=== PATIENT | female | born 1955 | race Caucasian/White ===

== ENCOUNTER → 2020-07-01 15:14 | Outpatient (CLI) | payer MEDICARE, SELFPAY ==
--- NOTE | ~2020-07-01 | MM_ITS ---
EXAMINATION: MM screening juli BI w rai HISTORY: Screening mammogram TECHNIQUE: Craniocaudal and mediolateral oblique 3-D tomosynthesis images were obtained and synthetic 2-D images were generated. CAD analysis was submitted and interpreted. COMPARISON: 10/23/2018, 09/20/2016, 05/25/2015 bilateral digital screening mammogram examinations BREAST PARENCHYMAL COMPOSITION: There are scattered areas of fibroglandular density. FINDINGS: There is no evidence of suspicious mass, calcification, or architectural distortion to sugg est malignancy in either breast. There has been no suspicious interval change. IMPRESSION: 1. No mammographic evidence of malignancy. 2. Recommend routine screening mammography in one year. BI-RADS Category 1: Negative Reviewed, dictated and finalized at location A.
== END ==
PROVIDERS: PCP Internal Medicine; Visit Provider Internal Medicine
DX: Z12.31 Encounter for screening mammogram for malignant neoplasm of breast (principal)
CPT/HCPCS: 77063; 77067

== ENCOUNTER → 2021-01-06 12:28 | Outpatient (CLI) | payer MEDICARE, SELFPAY ==
--- NOTE | ~2021-01-06 | DEXA_ITS ---
Bone Density Report Name: Sandra Duke Age: 65 Sex: Female Ethnicity: White Date of : 1955 Indication: postmenopausal; screening for osteoporosis; height loss; hysterectomy; Referring Provider: RODRIGO, ROSALES [place] Study: Bone densitometry was performed. Exam Date: January 06, 2021 Accession number: [id number] Bone Density: Region BMD T-score Z-score Classification AP Spine (L1-L4) 1.127 0.7 2.6 Normal Femoral Neck (Left) 0.841 -0.1 1.6 Normal Total Hip (Left) 1.026 0.7 2.0 Normal Femoral Neck (Right) 0.975 1.1 2.8 Normal Total Hip (Right) 1.075 1.1 2.4 Normal Total Hip Mean 1.051 0.9 2.2 Normal World Health Organization criteria for BMD impression classify patients as: Normal (T-score at or above -1.0), Osteopenia (T-score between -1.0 and -2.5), or Osteoporosis (T-score at or below -2.5). 10-year Fracture Risk: FRAX not reported because: All T-scores for Spine Total, Hip Total, Femoral Neck at or above -1.0 Previous Exams: Region Exam Age BMD T-score BMD Change BMD Change Date g/cm2 vs Baseline vs Previous AP Spine(L1-L4) 01/06/2021 65 1.127 0.7 -0.084 -0.021 10/23/2018 63 1.148 0.9 -0.063 0.050 04/26/2014 58 1.098 0.5 -0.113 -0.029* 06/01/2011 55 1.127 0.7 -0.084 0.021 05/04/2009 53 1.106 0.5 -0.105 0.032* 04/09/2007 51 1.075 0.3 -0.136 -0.136 07/24/2003 47 1.211 1.5 Total Hip(Left) 01/06/2021 65 1.026 0.7 -0.142 -0.029 10/23/2018 63 1.055 0.9 -0.112 0.032 04/26/2014 58 1.023 0.7 -0.144 -0.016 06/01/2011 55 1.039 0.8 -0.128 -0.103 05/04/2009 53 1.143 1.6 -0.025 0.043* 04/09/2007 51 1.100 1.3 -0.068 -0.068 07/24/2003 47 1.167 1.8 Total Hip(Right) 01/06/2021 65 1.075 1.1 -0.038 -0.047 10/23/2018 63 1.122 1.5 0.009 0.033 04/26/2014 58 1.089 1.2 -0.024 -0.002 06/01/2011 55 1.091 1.2 -0.022 -0.030 05/04/2009 53 1.121 1.5 0.008 -0.022 04/09/2007 51 1.142 1.6 0.029 0.029 07/24/2003 47 1.113 1.4 *Denotes significance at 95% confidence level, LSC for AP Spine = 0.022 g/cm2, LSC for Total Hip = 0.027 g/cm2 Clinical Information Provided by Patient:
== END ==
PROVIDERS: PCP Internal Medicine; Visit Provider Internal Medicine
DX: Z13.820 Encounter for screening for osteoporosis (principal); Z78.0 Asymptomatic menopausal state
CPT/HCPCS: 77080

== ENCOUNTER 2021-06-03 13:46 | Outpatient (CLI) | payer MEDICARE, SELFPAY ==
--- NOTE | ~2021-06-03 | XR_ITS ---
XR knee LT 3V DATE: 06/03/2021 15:15 INDICATION: Left knee pain TECHNIQUE: [place], AP, lateral views COMPARISON: None FINDINGS: Diffuse osteopenia. There is valgus deformity at the left knee. There is tricompartment osteoarthritic arthritis, most severe at lateral compartment where the joint space is virtually obliterated. No fracture or dislocation or joint effusion. No periosteal reaction or bone destruction. There is extensive calcification of the femoral, popliteal and trifurcation arteries. IMPRESSION: Osteopenia Tricompartment osteoarthritis, particularly severe at lateral compartment Valgus deformity of left knee Reviewed, dictated and finalized at location A.
== END 2021-06-03 13:47 | disposition home or self-care (01) ==
LOC: ANHIMG 13:55
PROVIDERS: PCP Internal Medicine; Visit Provider Internal Medicine
DX: M85.862 Other specified disorders of bone density and structure, left lower leg (principal); M17.12 Unilateral primary osteoarthritis, left knee
CPT/HCPCS: 73562

== ENCOUNTER 2023-03-07 11:58 | Outpatient (CLI) | payer MEDICARE, SELFPAY ==
[2023-03-07 14:07] LABS: Basophils Absolute Auto 0.1 K/mm3 (0.0-0.1); Eosinophils Absolute Auto 0.2 K/mm3 (0-0.3); Eosinophils Percent Auto 3.3 % (0-4.4); Hematocrit 38.6 % (37.0-47.0); Hemoglobin 12.3 g/dL (12.0-15.0); Immature Granulocyte Absolute 0.01 K/mm3 (0.00-0.031); Immature Granulocyte Percent A 0.2 % (0-0.5); Lymphocytes Absolute Auto 2.17 K/mm3 (0.9-3.2); Lymphocytes Percent Auto 37.6 % (18.3-44.2); Mean Corpuscular HGB Conc 31.9 g/dl (32-36); Mean Corpuscular Hemoglobin 31.7 pg (26-34); Mean Corpuscular Volume 99.5 fl (80-100); Mean Platelet Volume 11.2 fl (7.4-10.4); Monocytes Absolute Auto 0.5 K/mm3 (0.1-0.6); Monocytes Percent Auto 8.8 % (2.6-8.5); Neutrophils Absolute Auto 2.8 K/mm3 (1.3-6.7); Neutrophils Percent Auto 49.1 % (45.5-73.1); Platelet Count Result 183 k/mm3 (150-375); Red Blood Count 3.88 M/mm3 (4.2-5.4); Red Cell Distribution Width 14.3 % (11.5-14.5); White Blood Count 5.8 K/mm3 (4.5-10.0)
[2023-03-07 14:13] LABS: Urine Cotinine NEGATIVE
[2023-03-07 14:15] LABS: INR 0.9; Prothrombin Time 12.6 Seconds (11.1-14.7)
[2023-03-07 14:16] LABS: Albumin Level 4.3 g/dL (3.5-5.1); Anion Gap 5 mmol/L (8-16); Blood Urea Nitrogen 38 mg/dL (7-17); Calcium 9.5 mg/dL (8.4-10.2); Carbon Dioxide 30 mmol/L (22-30); Chloride 107 mmol/L (98-107); Estimated Glomerular Filt Rate 30; Glucose 65 mg/dL (65-110); Partial Thromboplastin Time 27.5 SECONDS (22.3-36.8); Potassium 4.5 mmol/L (3.4-5.0); Sodium 142 mmol/L (137-145)
[2023-03-07 14:19] LABS: Hemoglobin A1C 6.6 % (<5.7)
== END 2023-03-07 11:59 | disposition home or self-care (01) ==
LOC: ANHSURGERY 12:03
PROVIDERS: Anesthesiology; PCP Internal Medicine; Visit Provider Orthopaedic Surgery
DX: M17.12 Unilateral primary osteoarthritis, left knee (principal); Z01.818 Encounter for other preprocedural examination; N18.30 Chronic kidney disease, stage 3 unspecified
CPT/HCPCS: 80048; 80307; 82040; 83036; 85025; 85610; 85730; 86850; 86900; 86901; 87081; 87147; 87181; 87186

== ENCOUNTER 2023-03-20 00:30 | Day surgery (SDC) | payer MEDICARE, SELFPAY ==
[2023-03-07 12:33] VITALS: BP 128/59; PULSE 74; RESP 16; TEMP 36.6; O2SAT 100; BMI 34.1
--- NOTE | 2023-03-07 12:50 | PC.NURSE ---
Report to the Outpatient Waiting Room, entrance under the green pavilion located off [facility], at time __6:00AM on date __03/20/23 . Planned Procedure Time: __7:30AM . Time changes happen often and if your time is changed the preop area will call you the afternoon before. - You and your visitor will be asked to self-screen and do not enter if you have any COVID symptoms. - A mask is optional within the hospital at this time. Patients may have clear liquids (water, carbonated beverages, clear teas, apple juice) until 3 hours prior to surgery with a maximum of 20 ounces. - No food from midnight until time of surgery Take the following medications with a SIP of water the morning of surgery: ____INSULIN PUMP- BASAL RATE PER DR KENNEDY DO NOT STOP ANY OF YOUR OTHER PRESCRIPTION MEDICATIONS PRIOR TO SURGERY ?EXCEPT THE FOLLOWING Medications to discontinue per physician ___HOLD ASPIRIN, IBUPROFEN & VITAMIN/SUPPLEMENTS 7 DAYS PRE-OP PER DR BOYER(PER PATIENT) Date to take last dose___03/13/23 Please no make-up, nail estonian, hairspray, perfume, deodorant, or body powder the day of surgery. No jewelry (including any body piercings) or valuables the day of surgery, leave them at home. Please take a shower or bath the night before, or the morning of, surgery with an antibacterial soap. Wear comfortable, loose fitting clothing. Children are encouraged to wear pajamas. - Jewelry must be removed prior to entering the operating room. Rings and piercings that are not removed may be cut off. - The hospital will not accept responsibility for valuables. - Please leave all valuables, including medications, at home the day of surgery. If you are going home after surgery, a licensed pedicab driver must drive you home. - NO public transportation without another adult if you receive anesthesia. - We recommend that an adult stay with you for 24 hours following discharge. - We also recommend that you do not drive, make important decision, drink alcoholic beverages, or take any drugs that were not prescribed by your health care provider for at least 24 hours after your discharge time. Follow any additional instructions given to you from your surgeon. If you or anyone in your household have experienced Covid symptoms in the past week, please notify your surgeon or the nurse liaison at the phone number below for possible testing. Telephone instructions given to __PATIENT and asked if any additional questions and then verbalized understanding. Patient advised to call surgeon office or pre surgery nurse liaison [phone] if any additional questions.
--- NOTE | 2023-03-17 07:37 | PM.IMHP ---
H&P: HPI History of Present Illness Date/Time: 03/17/23 07:37 Chief Complaint: Left knee DJD Narrative: 67-year-old female presents today for left total knee arthroplasty cortisone injection right knee. She is a patient of Dr. Coto. she has been having symptoms in both her knees for years. She has been treating this nonsurgically cortisone injections. She has not able to take anti-inflammatories due to chronic kidney disease. Patient has severe pain in left knee. She has severe lateral compartment arthritis with valgus alignment and good range of motion patient feels this point she is ready to proceed with total arthroplasty rather continued nonsurgical treatment. Review of Systems Review of Systems: All systems reviewed & are unremarkable except as noted in HPI and below PMFSH Past Medical History Medical History (Updated 03/17/23 @ 07:42 by BUBBA Sosa) Cervical radiculopathy CKD (chronic kidney disease) Ganglion, right wrist Hyperlipidemia Hypertension Osteoarthritis Polyneuropathy Sleep apnea Type 2 diabetes mellitus Surgical History Surgical History (Updated 02/20/23 @ 13:28 by Leslie Castellanos MA) H/O vaginal hysterectomy 1983 Family History Family History Other Diabetes mellitus Family history of Alzheimer's disease Family history of Parkinson's disease Family history of cardiovascular disease Family history of glaucoma Social History Social History (Updated 02/22/23 @ 09:33 by Leslie Castellanos MA) Smoking status: Never smoker Alcohol intake: never Substance use: never Substance use type: does not use Living arrangements: alone Additional living arrangements comments: [facility] Occupation/Education: retired Gender identity (if verbalized by the patient): Female Sexual Orientation (if Verbalized by the Patient): Straight or Heterosexual Spiritual care concerns: No Meds Home Medications and Allergies Home Medications Medication Instructions Recorded Confirmed Type aspirin 81 mg tablet,delayed 81 mg PO DAILY 10/08/19 03/09/23 History release (Adult Aspirin Regimen) cetirizine 10 mg capsule (Zyrtec) 10 mg PO DAILY 10/08/19 03/09/23 History cranberry 400 mg capsule 400 mg PO DAILY 10/08/19 03/09/23 History flash glucose sensor (FreeStyle #1 ea 10/08/19 04/22/20 History Tierney 14 Day Sensor kit) lisinopril 10 mg tablet 10 mg PO QAM 10/08/19 03/09/23 History turmeric root extract 500 mg 500 mg PO DAILY 10/08/19 03/09/23 History capsule insulin pump controller (Omnipod #1 ea 04/22/20 04/22/20 History DASH PDM Kit (Gen 4)) insulin pump cartridge (Omnipod #30 ea 06/16/20 02/22/23 Rx Dash Insulin Pod) allopurinol 100 mg tablet 100 mg PO DAILY 02/20/23 03/09/23 History atorvastatin 80 mg tablet 80 mg PO QAM 02/20/23 03/09/23 History dapagliflozin 10 mg tablet 10 mg PO QAM 02/20/23 03/09/23 History (Farxiga) insulin aspart U-100 100 unit/mL 1 sliding scale dose subcut 02/20/23 03/09/23 History (3 mL) subcutaneous pen (Novolog USEASDIRECTD FlexPen U-100 Insulin aspart) semaglutide 2 mg/dose (8 mg/3 mL) 2 mg subcut WEEKLY 02/20/23 03/09/23 History subcutaneous pen injector (Ozempic) cyanocobalamin (vitamin B-12) 1,000 mcg subcut WEEKLY 03/07/23 03/09/23 History 1,000 mcg/mL injection solution ergocalciferol (vitamin D2) 1,250 1,250 mcg PO MONTHLY 03/07/23 03/09/23 History mcg (50,000 unit) capsule uztgpwxmdot-rwp-qkwoaseux-vitC 1 cap PO DAILY 03/07/23 03/09/23 History capsule (Glucosamine Complex-MSM capsule) ibuprofen 200 mg tablet (Advil) 200 mg PO Q6H PRN Pain 03/07/23 03/09/23 History jhchstusbckp-Lx-hhks-minerals 1 tablet PO DAILY 03/07/23 03/09/23 History oxybutynin chloride 5 mg 5 mg PO QAM 03/07/23 03/09/23 History tablet,extended release 24 hr zinc 50 mg capsule 50 mg PO DAILY 03/07/23 03/09/23 History Allergies Allergy/AdvReac Type Severity Reaction Stat
[2023-03-20] VITALS (14 sets, daily range): BP systolic 116–148; BP diastolic 52–74; PULSE 74–112; RESP 10–18; TEMP 35.9–36.9; O2SAT 96–100
--- NOTE | ~2023-03-20 | XR_ITS ---
EXAMINATION: [id number] DATE: 03/20/2023 11:54 CDT INDICATION: Left total knee arthroplasty TECHNIQUE: 2 views left knee FINDINGS: There is a left total knee arthroplasty in expected position. Subcutaneous gas with fluid and air in the joint are consistent with recent surgery. No evidence of periprosthetic fracture. IMPRESSION: 1. Recent left total knee arthroplasty. Reviewed, dictated and finalized at location []
[2023-03-20] MEDS: LACTATED RINGERS 1,000 ML 30 ML IV CONT ×2 (06:35→11:21)
[2023-03-20 06:52] LABS: Anion Gap 6 mmol/L (8-16); Blood Urea Nitrogen 33 mg/dL (7-17); Calcium 9.2 mg/dL (8.4-10.2); Carbon Dioxide 26 mmol/L (22-30); Chloride 108 mmol/L (98-107); Estimated CRCL calculation 26 ml/min; Estimated Glomerular Filt Rate 28; Glucose 152 mg/dL (65-110); Sodium 140 mmol/L (137-145)
--- NOTE | 2023-03-20 06:55 | WPDANESEPPF ---
Anes - Initial Pre Proc Eval Procedure: Operation Date: 03/20/23 07:30 Proposed Procedures p Left Total Knee Arthroplasty, Cortisone Injection Right Knee - Buck Gross MD Date/Time: 03/20/23 06:55 Surgeon: Buck Gross MD Pre Op Diagnosis: O A Bilateral Knees Patient Data Age: 67 Gender: F Height: 1.56 m Weight: 83.3 kg Last Vital Signs Temp 36.6 C 03/07/23 12:33 Pulse 74 03/07/23 12:33 Resp 16 03/07/23 12:33 BP 128/59 L 03/07/23 12:33 Pulse Ox 100 03/07/23 12:33 O2 Del Method Room Air 03/07/23 12:33 Allergies Allergy/AdvReac Type Severity Reaction Status Date / Time acetaminophen AdvReac Severe sleepy Verified 03/20/23 06:05 [From [employer] DayQuil] chlorpheniramine AdvReac Severe hostile/agg Verified 03/20/23 06:05 [From [employer] DayQuil] ressive dextromethorphan AdvReac Severe hostile, Verified 03/20/23 06:05 [From [employer] DayQuil] aggressive guaifenesin AdvReac Severe aggressive/ Verified 03/20/23 06:05 [From [employer]] hostile phenylpropanolamine AdvReac Severe hostile/agg Verified 03/20/23 06:05 [From [employer] DayQuil] ressive pseudoephedrine AdvReac Severe hostile/agg Verified 03/20/23 06:05 [From [employer]] ressive green beans Allergy Unknown Hives, Uncoded 03/20/23 06:05 trouble breathing Home Medications Medication Instructions Recorded Confirmed Type aspirin 81 mg tablet,delayed 81 mg PO DAILY 10/08/19 03/09/23 History release (Adult Aspirin Regimen) cetirizine 10 mg capsule (Zyrtec) 10 mg PO DAILY 10/08/19 03/20/23 History cranberry 400 mg capsule 400 mg PO DAILY 10/08/19 03/20/23 History flash glucose sensor (FreeStyle #1 ea 10/08/19 04/22/20 History Tierney 14 Day Sensor kit) lisinopril 10 mg tablet 10 mg PO QAM 10/08/19 03/09/23 History turmeric root extract 500 mg 500 mg PO DAILY 10/08/19 03/09/23 History capsule insulin pump controller (Omnipod #1 ea 04/22/20 04/22/20 History DASH PDM Kit (Gen 4)) insulin pump cartridge (Omnipod #30 ea 06/16/20 02/22/23 Rx Dash Insulin Pod) allopurinol 100 mg tablet 100 mg PO DAILY 02/20/23 03/20/23 History atorvastatin 80 mg tablet 80 mg PO QAM 02/20/23 03/20/23 History dapagliflozin 10 mg tablet 10 mg PO QAM 02/20/23 03/09/23 History (Farxiga) insulin aspart U-100 100 unit/mL 1 sliding scale dose subcut 02/20/23 03/09/23 History (3 mL) subcutaneous pen (Novolog USEASDIRECTD FlexPen U-100 Insulin aspart) semaglutide 2 mg/dose (8 mg/3 mL) 2 mg subcut WEEKLY 02/20/23 03/09/23 History subcutaneous pen injector (Ozempic) cyanocobalamin (vitamin B-12) 1,000 mcg subcut WEEKLY 03/07/23 03/09/23 History 1,000 mcg/mL injection solution ergocalciferol (vitamin D2) 1,250 1,250 mcg PO MONTHLY 03/07/23 03/09/23 History mcg (50,000 unit) capsule rcajlnootfm-uwg-kmfuawroi-vitC 1 cap PO DAILY 03/07/23 03/09/23 History capsule (Glucosamine Complex-MSM capsule) ibuprofen 200 mg tablet (Advil) 200 mg PO Q6H PRN Pain 03/07/23 03/09/23 History wllymcwjzzjk-Gm-muwa-minerals 1 tablet PO DAILY 03/07/23 03/09/23 History oxybutynin chloride 5 mg 5 mg PO QAM 03/07/23 03/09/23 History tablet,extended release 24 hr zinc 50 mg capsule 50 mg PO DAILY 03/07/23 03/09/23 History Laboratory Tests 03/20/23 06:37 Sodium 140 mmol/L (137-145) Potassium 4.0 mmol/L (3.4-5.0) Chloride 108 H mmol/L (98-107) Carbon Dioxide 26 mmol/L (22-30) Anion Gap 6 L mmol/L (8-16) BUN 33 H mg/dL (7-17) Creatinine 1.80 H mg/dL (0.7-1.0) Estim Creat Clear Calc 26 ml/min Estimated GFR 28 L (59 - ) Glucose 152 H mg/dL (65-110) Calcium 9.2 mg/dL (8.4-10.2) Patient hx anesthesia problems: none Family hx anesthesia problems: none Results Review: All pre-operative results and documents have been reviewed as part of the pre-operative evaluation. [facility] Past Medical History Medical History (Reviewed 03/20/23 @ 06:55 by Eileen
[2023-03-20] MEDS: VANCOMYCIN 1,250 MG/NS 250 ML BAG 166.67 MG IVPB (06:57)
[2023-03-20] MEDS: TRANEXAMIC ACID 1,000MG/ISO100 1,000 MG/100 ML BAG 200 MG IVPB (06:58)
--- NOTE | 2023-03-20 07:39 | WPDHPUPDATE1 ---
History and Physical Update Update Date/Time: 03/20/23 07:39 History and Physical has been reviewed, including an updated exam of the patient. There are NO changes in the patient's condition. Risks, benefits, and alternatives have been discussed and questions answered. Patient agrees to proceed with procedure.
[2023-03-20] MEDS: ceFAZolin 2 GM/D5W 50 ML 2 GM/50 ML BAG IVPB (07:46)
[2023-03-20] MEDS: ceFAZolin SODIUM 1 GM VIAL 3 GM (08:34)
[2023-03-20] MEDS: GENTAMICIN BONE CEMENT REFOBACIN 1 EACH TOPICAL (08:35)
[2023-03-20] MEDS: methylPREDNISolone ACETATE 80 MG/ML VIAL I-ARTICULR (08:37)
[2023-03-20] MEDS: TRANEXAMIC ACID 1,000 MG/10 ML AMPUL 1000 MG IV PUSH (10:29)
[2023-03-20] MEDS: ceFAZolin SODIUM 1 GM VIAL 2 GM IV PUSH (10:32)
[2023-03-20] MEDS: DEXAMETHASONE SOD PHOS INJ 4 MG/ML VIAL IV PUSH (10:52)
[2023-03-20 10:58] LABS: Glucose Point of Care 133 mg/dl (65-105)
--- NOTE | 2023-03-20 11:16 | W.PM.PROC2 ---
Procedure Note - Detailed Date of Procedure 03/20/23 Pre-op Diagnosis O A Bilateral Knees Post-op Diagnosis Same Procedure Performed Cortisone injection right knee, left total knee arthroplasty Surgeon Buck Gross MD Type Bar And Segment Assembler bibiana Anesthesia General Indications Patient was brought to the operating room and general anesthesia was administered. Her blood sugars were checked very carefully during the procedure at least every 1 hour. Her last blood sugar at the end the procedure 134. Her insulin pump was set at the setting directed by her physician managing her diabetes. She received 2 g of Ancef and weight based vancomycin preoperatively. She did test positive for MRSA in her nasal swab. She received 1 g of tranexamic acid preoperatively. After a ChloraPrep prep, 80 mg of Depo-Medrol and 3 cc 1% lidocaine were injected into the right knee without difficulty. Then the left knee was prepped and draped in the usual fashion. Under anesthesia her flexion contracture was significantly less approximately 4 or 5? and she flexed to 125. The limb was exsanguinated tourniquet elevated to 300 mmHg. A 7 in longitudinal midline incision was used and a vastus medialis splitting approach utilized splitting the vastus medialis at the superior pole the patella. Infrapatellar and suprapatellar fat pads were excised the quadriceps synovectomy carried out. The patella measured 20-1/2 mm in thickness was cut to 15 mm and a protector cap applied. A guide gina was inserted down the femoral canal after aspiration of canal contents using the 5 degree valgus cutting bushing 9 mm of bone removed the distal femur. I estimate we removed about 5 from the lateral side. Next the tibial plateau was cut. We used a skim cut off the posterior margin of the medial tibial plateau and this brought us 2 mm on the low point of the wear spot on the lateral tibial plateau. Alignment was confirmed to be perpendicular to the axis of the tibia. Bone quality was somewhat poor. Meniscal remnants were excised the PCL posterior central capsule released. There were loose bodies in the posterior recess 1 medially more than a cm in size the smaller 1 laterally. These were removed. Flexion gap measured 8 mm medially and 12 mm laterally at 90? with distraction. The femoral sizing guide was applied to the distal femur set at 5? of external rotation which matched Whitesides line exactly. Posterior referencing pinholes were placed. The 62.5 vanguard cutting block was applied which seemed a bit wide but it appeared the 60 would notch. We cut with the 62.5 the anterior cut. We applied the 60 cutting guide and confirmed this with notch. A few degrees of traction were placed on the distal femoral cut after which the 60 cutting guide was applied and a flush anterior cut was made without notching. Posterior and chamfer cuts were made at this time. The size 60 femur overhung about 1 mm lateral 1 flush medial and had a nice fit. The posterolateral capsule was released from the posterolateral tibial margin. With the 10 CR insert slid into the joint there was a little bit of play in flexion and in extension we lacked 5 or 60? no play medially or laterally therefore an additional 2 mm of bone removed from the distal femur at this time chamfer is revisited and remaining posterior condylar bone was removed at this time. The tibia was sized to a 67 which fit line to line anteromedial to posterolateral and wanted to optimize the size because of her softer bone. This was placed at proper rotation and punched. We trialed with the 10 insert a this time and in flexion the medial and lateral sides opened up each about 1 mm and there was appropriate anterior posterior drawer stability. The knee had a barely positive bounce this point. It opened up 2 mm medially and 0.5 mm laterally. The iliotibial band was still flexible and full extension I did not feel that was a impediment to her extension. As such, additi
--- NOTE | 2023-03-20 11:32 | PM.OP ---
Procedure Note - Brief Procedure Note - Brief Date of procedure: 03/20/23 O A Bilateral Knees Procedure performed: Left total knee arthroplasty Surgeon: BUBBA Sosa Description of procedure: 67-year-old female underwent left total knee arthroplasty on 03/20. I was involved procedure including positioning patient on the or table as well as 1st assisting to the time of surgery. Total time spent was 4 hours
[2023-03-20] MEDS: fentaNYL CITRATE INJ (*CRX) 100 MCG/2 ML VIAL 25 MCG IV PUSH (11:58)
[2023-03-20] MEDS: ONDANSETRON INJ 4 MG/2 ML VIAL IV PUSH (12:12)
[2023-03-20] MEDS: diphenhydrAMINE HCl INJ 50 MG/ML VIAL 25 MG IV PUSH (12:25)
[2023-03-20 12:34] LABS: Glucose Point of Care 207 mg/dl (65-105)
--- NOTE | 2023-03-20 14:23 | WPDCN ---
Assessment and Plan Assessment and plan (1) Osteoarthritis of both knees: Code(s): M17.0 - Bilateral primary osteoarthritis of knee Status: Acute Assessment and Plan: Postop day 0 status post left total knee arthroplasty and cortisone injection of right knee. Wound care, pain control, and DVT prophylaxis deferred to Dr. Gross. Agree with PT/OT. Check baseline labs in a.m. (2) Type 2 diabetes mellitus: Code(s): E11.9 - Type 2 diabetes mellitus without complications Status: Acute Assessment and Plan: Patient may use her home insulin pump and continues glucose monitor. Diabetes well controlled with recent A1c of 6.6%. (3) Chronic kidney disease: Code(s): N18.9 - Chronic kidney disease, unspecified Status: Acute Assessment and Plan: Creatinine is stable on review of previous labs. (4) Hypertension: Code(s): I10 - Essential (primary) hypertension Status: Acute Assessment and Plan: Blood pressures have been a bit high postoperatively, likely due to pain. Continue antihypertensives and monitor. Plan Thank you for allowing us to participate in this patient's care. Please do not hesitate to contact us with any questions. HPI Data of Consult Date/Time: 03/20/23 14:45 Requesting Physician: Buck Gross MD Consult Narrative Reason for consult: Post operative medical management. Narrative: This is a very pleasant 67-year-old female with osteoarthritis of both knees whom the hospitalist service has been consulted for help managing her medical conditions postoperatively. She has had longstanding pain in both knees for which she has been followed by Dr. Gross. She has not had longstanding relief with conservative outpatient treatment and she elected for left knee replacement today; she also had a cortisone injection of the right knee. Her surgery was performed under general anesthesia with no immediate complications and an estimated blood loss 200 mL. Postoperatively the her pain is been pretty well controlled however it does seem to intensify when she is up walking with therapy. She had some nausea early on but that has since resolved and she was able to tolerate dinner. She denies fever, chills, sweats, chest pain, and shortness of breath. She also denies paresthesias, skin color, and temperature changes distal to the surgical site. No personal or family history of venous thromboembolism. On discharge she will be going home and her will be helping her as needed. Aside from osteoarthritis, her medical history significant for type 2 diabetes mellitus, chronic kidney disease, hypertension, and hyperlipidemia. Her diabetes is well controlled with a recent hemoglobin A1c of 6.6%. She has a continuous glucose monitor and it has been pretty stable since surgery, ranging from the 90s to 150s. Her blood pressures have been running a bit high since surgery, likely due to pain. Otherwise she reports them to be well controlled on her current medications. Review of Systems Review of Systems: Twelve systems were reviewed and are negative except for as per HPI. [facility] Past Medical History Medical History (Updated 03/20/23 @ 14:33 by Nilsa Pringle PA-C) Cervical radiculopathy Chronic kidney disease Stage 3b to 4 with a baseline creatinine of 1.70 to 1.80. Diverticulosis Hyperlipidemia Hypertension Irritable bowel syndrome with diarrhea Obstructive sleep apnea No longer wearing CPAP after weight loss in 2019. Osteoarthritis Overactive bladder Polyneuropathy Type 2 diabetes mellitus Surgical History Surgical History (Updated 03/20/23 @ 14:31 by Nilsa Pringle PA-C) History of cardiac catheterization (2003) Clear coronary arteries per patient report. History of cataract extraction with lens replacement History of colonoscopy with polypectomy History of vaginal hysterectomy (1984) Family History Family History (Reviewed
[2023-03-20] MEDS: oxyCODONE HCL (*CRX) 2.5 MG TAB IR PO ×4 (14:59→20:55)
--- NOTE | 2023-03-20 16:27 | PCPTNOTE ---
On 03/20/23, the student, [Hailey May], provided care and completed [facility] documentation on this patient. I have reviewed the student's documentation and agree with the findings.
[2023-03-20] MEDS: ACETAMINOPHEN 500 MG TABLET 1000 MG PO (17:20)
[2023-03-20] MEDS: SODIUM CHLORIDE 0.9% IV 1,000 ML 125 ML IV CONT (17:20)
[2023-03-20] MEDS: ceFAZolin 1 GM/NS 50 ML 1 GM/50 ML BAG IVPB (17:21)
[2023-03-20] MEDS: SENNA/DOCUSATE SODIUM TABLET 2 TAB PO (17:31)
[2023-03-20] MEDS: FAMOTIDINE 20 MG TABLET PO (20:50)
[2023-03-21] MEDS: oxyCODONE HCL (*CRX) 2.5 MG TAB IR PO ×4 (00:46→12:10)
[2023-03-21] MEDS: ceFAZolin 1 GM/NS 50 ML 1 GM/50 ML BAG IVPB ×2 (00:47→09:09)
[2023-03-21 01:06] VITALS: BP 128/58; PULSE 85; RESP 18; TEMP 36.2; O2SAT 96
[2023-03-21 05:52] VITALS: BP 143/74; PULSE 113; RESP 18; TEMP 36.2; O2SAT 98
--- NOTE | 2023-03-21 06:29 | PM.PNORT ---
Subjective Subjective Date/Time Seen: 03/21/23 06:29 Interval history: Postop day 1 patient is alert. She is afebrile vital signs are stable. Morning labs are not been finalized yet. Dressing is dry and intact. Patient was up yesterday walking room. Pain is well controlled. Overall patient is feeling well and appears to be doing well. We will plan to have the patient work with therapy this morning and again this afternoon. If she continues do well we will discharge her home this afternoon. Objective Data Vital Signs Vital Signs: Vital Signs - 24 hr 03/20/23 07:15 03/20/23 11:21 03/20/23 11:35 Temperature 36.9 C 36.7 C Pulse Rate 74 90 112 H Respiratory Rate 16 15 12 Blood Pressure 135/54 L 148/62 H 147/74 H Pulse Oximetry 100 99 99 Oxygen Delivery Room Air Simple Face Mask Simple Face Mask Oxygen Flow Rate 6 6 03/20/23 11:45 03/20/23 12:00 03/20/23 12:15 Temperature Pulse Rate 96 91 96 Respiratory Rate 12 10 L 13 Blood Pressure 147/61 H 145/57 H 144/58 H Pulse Oximetry 99 100 98 Oxygen Delivery Simple Face Mask Simple Face Mask Room Air Oxygen Flow Rate 6 4 03/20/23 12:30 03/20/23 12:45 03/20/23 13:00 Temperature Pulse Rate 88 87 85 Respiratory Rate 12 12 11 L Blood Pressure 138/52 L 131/58 L 135/57 L Pulse Oximetry 98 98 96 Oxygen Delivery Room Air Room Air Room Air Oxygen Flow Rate 03/20/23 13:30 03/20/23 13:45 03/20/23 14:15 Temperature 36.2 C L 35.9 C L 35.9 C L Pulse Rate 94 87 89 Respiratory Rate 18 18 16 Blood Pressure 132/56 L 128/58 L 122/57 L Pulse Oximetry 99 98 96 Oxygen Delivery Oxygen Flow Rate 03/20/23 15:50 03/20/23 16:00 03/20/23 21:00 Temperature 36.0 C L 36.1 C L Pulse Rate 82 86 Respiratory Rate 16 18 Blood Pressure 147/69 H 116/58 L Pulse Oximetry 98 98 Oxygen Delivery Room Air Oxygen Flow Rate 03/21/23 01:06 03/21/23 05:52 Temperature 36.2 C L 36.2 C L Pulse Rate 85 113 H Respiratory Rate 18 18 Blood Pressure 128/58 L 143/74 H Pulse Oximetry 96 98 Oxygen Delivery Oxygen Flow Rate Intake/Output Intake/Output: Intake & Output 03/18/23 03/19/23 03/20/23 03/21/23 23:59 23:59 23:59 23:59 Intake Total 650 50 Output Total 1250 1450 Balance -600 -1400 Meds/Results Medications: Active Medications Generic Name Dose Route Start Last Admin Trade Name Freq PRN Reason Stop Dose Admin Acetaminophen 1,000 mg 03/20/23 14:00 03/21/23 02:20 Acetaminophen 500 Mg Tablet PO Not Given Q6H ON LICENSE OF [facility] Allopurinol 100 mg 03/21/23 09:00 Allopurinol 100 Mg Tablet PO DAILY ON LICENSE OF [facility] Atorvastatin Calcium 80 mg 03/21/23 09:00 Atorvastatin 40 Mg Tablet PO QAM REJI Dextrose 12.5 gm 03/20/23 14:34 Dextrose 50% 25 Gm/50 Ml Syringe IV PUSH PRN PRN Hypoglycemia Protocol Diphenhydramine HCl 25 mg 03/20/23 13:12 Diphenhydramine Hcl Inj 50 Mg/Ml Vial IV PUSH Q6H PRN Itching Empagliflozin 25 mg 03/21/23 09:00 Empagliflozin 25 Mg Tablet PO 04/20/23 08:59 QAM ON LICENSE OF [facility] Enoxaparin Sodium 30 mg 03/21/23 09:00 Enoxaparin 30 Mg/0.3 Ml Syringe SUB-Q DAILY ON LICENSE OF [facility] Famotidine 20 mg 03/20/23 21:00 03/20/23 20:50 Famotidine 20 Mg Tablet PO 20 mg Q12HR REJI Administration Glucagon 1 mg 03/20/23 14:34 Glucagon For Inj 1 Mg Vial IM PRN PRN Hypoglycemia Protocol Glucose 15 gm 03/20/23 14:34 Glucose Oral Gel 15 Gm Of Glucse In 37.5 Gm Tube PO PRN PRN Hypoglycemia Protocol Home Med 1 each 03/21/23 06:00 Home Medication XX 04/20/23 05:59 DAILY@0600 REJI Cefazolin Sodium 1 gm in 50 mls @ 100 mls/hr 03/20/23 16:00 03/21/23 01:17 Ancef 1 Gm/Ns 50 Ml IVPB 03/21/23 08:29 Infused Q8H ON LICENSE OF [facility] Infusion Dextrose 1,000 mls @ 100 mls/hr 03/20/23 14:34 Dextrose 5% 1,000 Ml IVPB PRN PRN Hypoglycemia Protocol Insulin Aspart 2 - 5 units 03/20/23 17:00 03/20/23 16:39 Insulin Aspart (*
[2023-03-21 06:36] LABS: Basophils Percent Auto 0.2 % (0.2-1.2); Hemoglobin 10.6 g/dL (12.0-15.0); Immature Granulocyte Absolute 0.04 K/mm3 (0.00-0.031); Immature Granulocyte Percent A 0.4 % (0-0.5); Lymphocytes Absolute Auto 1.61 K/mm3 (0.9-3.2); Lymphocytes Percent Auto 16.1 % (18.3-44.2); Mean Corpuscular HGB Conc 33.1 g/dl (32-36); Mean Corpuscular Hemoglobin 32.5 pg (26-34); Mean Corpuscular Volume 98.2 fl (80-100); Mean Platelet Volume 10.9 fl (7.4-10.4); Monocytes Percent Auto 10.4 % (2.6-8.5); Neutrophils Absolute Auto 7.3 K/mm3 (1.3-6.7); Neutrophils Percent Auto 72.9 % (45.5-73.1); Platelet Count Result 150 k/mm3 (150-375); Red Blood Count 3.26 M/mm3 (4.2-5.4); Red Cell Distribution Width 14.6 % (11.5-14.5)
[2023-03-21 06:52] LABS: Alanine Aminotransferase 19 U/L (6-35); Albumin Level 3.4 g/dL (3.5-5.1); Alkaline Phosphatase 93 U/L (38-126); Anion Gap 5 mmol/L (8-16); Aspartate Amino Transferase 28 U/L (14-36); Bilirubin,Total 0.4 mg/dL (0.2-1.3); Blood Urea Nitrogen 26 mg/dL (7-17); Calcium 8.4 mg/dL (8.4-10.2); Carbon Dioxide 25 mmol/L (22-30); Chloride 107 mmol/L (98-107); Estimated CRCL calculation 34 ml/min; Estimated Glomerular Filt Rate 37; Glucose 161 mg/dL (65-110); Magnesium 1.6 mg/dL (1.6-2.3); Potassium 4.4 mmol/L (3.4-5.0); Sodium 137 mmol/L (137-145)
[2023-03-21 07:39] LABS: Glucose Point of Care 151 mg/dl (65-105)
[2023-03-21] MEDS: SENNA/DOCUSATE SODIUM TABLET 2 TAB PO (09:07)
[2023-03-21] MEDS: LORATADINE 10 MG TABLET PO (09:07)
[2023-03-21] MEDS: DOXYCYCLINE HYCLATE 100 MG TABLET PO (09:07)
[2023-03-21] MEDS: oxyBUTYnin CHLORIDE XL 5 MG TAB.ER.24 PO (09:08)
[2023-03-21] MEDS: ACETAMINOPHEN 500 MG TABLET 1000 MG PO ×2 (09:08→14:05)
[2023-03-21] MEDS: ENOXAPARIN 30 MG/0.3 ML SYRINGE SUB-Q (09:08)
[2023-03-21] MEDS: ATORVASTATIN 40 MG TABLET 80 MG PO (09:08)
[2023-03-21] MEDS: FAMOTIDINE 20 MG TABLET PO (09:08)
[2023-03-21] MEDS: allopurinoL 100 MG TABLET PO (09:09)
[2023-03-21] MEDS: polyethylene glycoL 3350 17 GM POWD.PACK PO (09:09)
[2023-03-21 09:30] VITALS: BP 133/48; PULSE 94; RESP 20; TEMP 36.3; O2SAT 98
[2023-03-21 11:36] LABS: Glucose Point of Care 131 mg/dl (65-105)
--- NOTE | 2023-03-21 11:41 | PM.IMPN ---
Progress Note: A&P Assessment and Plan (1) Osteoarthritis of both knees: Code(s): M17.0 - Bilateral primary osteoarthritis of knee Status: Acute Assessment and Plan: Postop day 1 status post left total knee arthroplasty and cortisone injection of right knee. Wound care, pain control, and DVT prophylaxis deferred to Dr. Gross. Agree with PT/OT. (2) Type 2 diabetes mellitus: Code(s): E11.9 - Type 2 diabetes mellitus without complications Status: Acute Assessment and Plan: Patient may use her home insulin pump and continuous glucose monitor. Diabetes well controlled with recent A1c of 6.6%. (3) Chronic kidney disease: Code(s): N18.9 - Chronic kidney disease, unspecified Status: Acute Assessment and Plan: Creatinine is stable on review of previous labs. (4) Hypertension: Code(s): I10 - Essential (primary) hypertension Status: Acute Assessment and Plan: Blood pressures running a bit high postoperatively, likely due to pain. Improved at this time. Last BP 133/48. Continue antihypertensives and monitor. (5) Normocytic anemia: Code(s): D64.9 - Anemia, unspecified Status: Acute Assessment and Plan: Slight decline in stage postoperatively from baseline labs. Likely due to blood loss from surgery. May in part be due to chronic kidney disease. No evidence of active blood loss. H&H stable Subjective Date/time seen: 03/21/23 11:41 Interval history: Date of service: 03/21/2023 Sandra lucas is a 67-year-old female with history of CKD, hypertension, JOSE, IBS, type 2 diabetes mellitus on insulin pump who is s/p left total knee arthroplasty, seen in consultation for medical management. The patient is feeling okay today. She had recently finished working therapy, she practiced going on the stairs and into a tub. This caused worsened pain in her left knee. She denies any shortness of breath. Denies urinary symptoms, voiding spontaneously. Last bowel movement 2 days ago. No abdominal pain, cramping, bloating. Plans to return home where she lives with her . He will be available should she require any assistance. She has 2.5 stairs to enter her home. Review of Systems Review of Systems: All systems reviewed & are unremarkable except as noted in HPI and below Exam Narrative: General: A well-nourished, well-appearing 67-year-old female, sitting up in bed, comfortable, NARD Neuro: awake, alert and oriented x4, speech clear, no focal neuro deficits noted HEENMT: normocephalic, atraumatic, EOMI, sclerae anicteric, moist oral mucosa Respiratory: clear to auscultation bilaterally, nonlabored breathing Cardio: regular rate, regular rhythm with S1-S2 Abdomen: nondistended, normoactive bowel sounds, soft, nontender to palpation Extremities: Left knee incision covered with dressing, ice pack on the knee, BLE no edema, erythema, or tenderness to palpation, able to wiggle toes bilaterally Skin: no rashes or lesions, warm and dry Psych: appropriate mood and affect, judgment and insight intact Objective Data Vital Signs Vital Signs: Vital Signs - 24 hr 03/20/23 11:45 03/20/23 12:00 03/20/23 12:15 Temperature Pulse Rate 96 91 96 Respiratory Rate 12 10 L 13 Blood Pressure 147/61 H 145/57 H 144/58 H Pulse Oximetry 99 100 98 Oxygen Delivery Simple Face Mask Simple Face Mask Room Air Oxygen Flow Rate 6 4 03/20/23 12:30 03/20/23 12:45 03/20/23 13:00 Temperature Pulse Rate 88 87 85 Respiratory Rate 12 12 11 L Blood Pressure 138/52 L 131/58 L 135/57 L Pulse Oximetry 98 98 96 Oxygen Delivery Room Air Room Air Room Air Oxygen Flow Rate 03/20/23 13:30 03/20/23 13:45 03/20/23 14:15 Temperature 97.2 F L 96.6 F L 96.7 F L Pulse Rate 94 87 89 Respiratory Rate 18 18 16 Blood Pressure 132/56 L 128/58 L 122/57 L Pulse Oximetry 99 98 96 Oxygen Delivery Oxygen Flow Rate 03/20/23 15:50
--- NOTE | 2023-03-21 11:56 | PM.DS ---
DS: Admitting Diagnosis Discharge Date 03/21 Admitting Diagnosis left knee DJD DS: Discharge Diagnosis Discharge Diagnosis (1) Osteoarthritis of both knees: Code(s): M17.0 - Bilateral primary osteoarthritis of knee Status: Acute DS: Summary Hospital Course Hospital Course: 67-year-old female who underwent left total knee arthroplasty 03/20. She Underwent the procedure without complications. Postoperatively she has been afebrile vital signs are stable. patient was up walking the day of surgery with physical therapy. She is weight-bearing as tolerated. We are not using anti-inflammatories on her postoperatively due to her chronic kidney disease. Her creatinine clearance was below 30 When she was initially admitted and initially we were going to use Lovenox. labs on postop day 1 showed her creatinine clearance jumped up to 34. She did get 1 dose of Lovenox 30 mg. She will take Eliquis 2.5 mg b.i.d. for 2 weeks for DVT prophylaxis at home. We are using Tylenol and oxycodone 5 mg for pain control. Dressing is dry and intact. Patient was strongly advised to keep the leg elevated at home to keep the swelling down do exercises on an hourly basis. She has outpatient therapy starting of this week. She will also go home on a 2 week course of doxycycline due to her positive nasal swab for MRSA. We are not using Bactrim because this could irritate her kidneys. She also month Senokot MiraLax. Patient was advised any questions or concerns she is to call the office otherwise we will see her at her appointed dates. Time Spent with Patient Time attestation: Total time spent providing and/or coordinating discharge services: DS: Data Data Completed and Pending Labs on day of discharge: Labs from last 24 hours 03/21/23 03/21/23 03/21/23 11:31 07:36 06:06 WBC 10.0 RBC 3.26 L Hgb 10.6 L Hct 32.0 L MCV 98.2 MCH 32.5 MCHC 33.1 RDW 14.6 H Plt Count 150 MPV 10.9 H Immature Gran % (Auto) 0.4 Neut % (Auto) 72.9 Lymph % (Auto) 16.1 L [place] % (Auto) 10.4 H Eos % (Auto) 0.0 Baso % (Auto) 0.2 Lymph # (Auto) 1.61 [place] # (Auto) 1.0 H Eos # (Auto) 0.0 Baso # (Auto) 0.0 Abs Immat Gran (auto) 0.04 H Absolute Neuts (auto) 7.3 H Absolute Nucleated RBC 0.0 Nucleated RBC % 0.0 Sodium 137 Potassium 4.4 Chloride 107 Carbon Dioxide 25 Anion Gap 5 L BUN 26 H Creatinine 1.40 H Estim Creat Clear Calc 34 Estimated GFR 37 L Glucose 161 H POC Capillary Glucose 131 H 151 H Calcium 8.4 Magnesium 1.6 Total Bilirubin 0.4 Direct Bilirubin 0.0 AST 28 ALT 19 Alkaline Phosphatase 93 Total Protein 6.0 L Albumin 3.4 L Vitamin D 25-Hydroxy 03/20/23 03/20/23 13:35 12:20 WBC RBC Hgb Hct MCV MCH MCHC RDW Plt Count MPV Immature Gran % (Auto) Neut % (Auto) Lymph % (Auto) [place] % (Auto) Eos % (Auto) Baso % (Auto) Lymph # (Auto) [place] # (Auto) Eos # (Auto) Baso # (Auto) Abs Immat Gran (auto) Absolute Neuts (auto) Absolute Nucleated RBC Nucleated RBC % Sodium Potassium Chloride Carbon Dioxide Anion Gap BUN Creatinine Estim Creat Clear Calc Estimated GFR Glucose POC Capillary Glucose 207 H Calcium Magnesium Total Bilirubin Direct Bilirubin AST ALT Alkaline Phosphatase Total Protein Albumin Vitamin D 25-Hydroxy 53.0 Discharge Plan Discharge Patient Disposition: Home, Self-Care Discharge Instructions: HÉCTOR BOYER M.D [facility] [address] [place] [id number] POST-OPERATIVE DISCHARGE INSTRUCTIONS TOTAL KNEE ARTHROPLASTY 1. When resting, lie on back with leg elevated above heart to minimize swelling. Significant swelling could indicate a blood clot and if this occurs call the office (or go to the ER) to have
[2023-03-21 12:00] VITALS: BP 126/49; PULSE 87; RESP 12; TEMP 36.4; O2SAT 98
--- NOTE | 2023-03-21 13:53 | WPDANESPN ---
Anes - Prog Note Post-Op Date/Time: 03/21/23 13:53 Cardiovascular status: normal Respiratory status: normal Airway patency: baseline Mental status: baseline Post-Op hydration status: normal Vital Signs: Last Vital Signs Temp 36.4 C L 03/21/23 12:00 Pulse 87 03/21/23 12:00 Resp 12 03/21/23 12:00 BP 126/49 L 03/21/23 12:00 Pulse Ox 98 03/21/23 12:00 O2 Del Method Room Air 03/21/23 09:18 O2 Flow Rate 4 03/20/23 12:00 Pain Score (VAS): 12/16 I/O: Intake & Output 03/20/23 03/21/23 03/21/23 23:59 07:59 15:59 Intake Total 250 50 834 Output Total 1100 1450 200 Balance -850 -1400 634 Laboratory Tests 03/21/23 06:06 03/21/23 06:06 03/20/23 03/21/23 03/21/23 13:35 06:06 07:36 WBC 10.0 RBC 3.26 L Hgb 10.6 L Hct 32.0 L MCV 98.2 MCH 32.5 MCHC 33.1 RDW 14.6 H Plt Count 150 MPV 10.9 H Immature Gran % (Auto) 0.4 Neut % (Auto) 72.9 Lymph % (Auto) 16.1 L [place] % (Auto) 10.4 H Eos % (Auto) 0.0 Baso % (Auto) 0.2 Lymph # (Auto) 1.61 [place] # (Auto) 1.0 H Eos # (Auto) 0.0 Baso # (Auto) 0.0 Abs Immat Gran (auto) 0.04 H Absolute Neuts (auto) 7.3 H Absolute Nucleated RBC 0.0 Nucleated RBC % 0.0 Sodium 137 Potassium 4.4 Chloride 107 Carbon Dioxide 25 Anion Gap 5 L BUN 26 H Creatinine 1.40 H Estim Creat Clear Calc 34 Estimated GFR 37 L Glucose 161 H POC Capillary Glucose 151 H Calcium 8.4 Magnesium 1.6 Total Bilirubin 0.4 Direct Bilirubin 0.0 AST 28 ALT 19 Alkaline Phosphatase 93 Total Protein 6.0 L Albumin 3.4 L Vitamin D 25-Hydroxy 53.0 03/21/23 11:31 WBC RBC Hgb Hct MCV MCH MCHC RDW Plt Count MPV Immature Gran % (Auto) Neut % (Auto) Lymph % (Auto) [place] % (Auto) Eos % (Auto) Baso % (Auto) Lymph # (Auto) [place] # (Auto) Eos # (Auto) Baso # (Auto) Abs Immat Gran (auto) Absolute Neuts (auto) Absolute Nucleated RBC Nucleated RBC % Sodium Potassium Chloride Carbon Dioxide Anion Gap BUN Creatinine Estim Creat Clear Calc Estimated GFR Glucose POC Capillary Glucose 131 H Calcium Magnesium Total Bilirubin Direct Bilirubin AST ALT Alkaline Phosphatase Total Protein Albumin Vitamin D 25-Hydroxy Post-procedural complaints: none Patient Feedback: Patient satisfied with anesthetic care.
[2023-03-21] MEDS: oxyCODONE HCL (*CRX) 5 MG TAB IR PO (14:05)
--- NOTE | 2023-03-21 15:49 | PC.NURSE ---
RN sent pt home with 1 mepilex to change on POD 7
--- NOTE | 2023-03-26 10:45 | PC.NURSE ---
Patient called with concerns regarding her medications from discharge. All questions answered.
== END 2023-03-21 15:51 | disposition home or self-care (01) ==
LOC: ANHSURGERY 09:13 → ANH3MEDSUR 13:14
PROVIDERS: Orthopaedic Surgery; Physician Assistant; Physician Assistant Surgical; PCP Internal Medicine; Visit Provider Physician Assistant
PROC: (CPT 27447; principal; 2023-03-20 07:30)
DX: M17.0 Bilateral primary osteoarthritis of knee (principal); I12.9 Hypertensive chronic kidney disease with stage 1 through stage 4 chronic kidney disease, or unspecified chronic kidney disease; E11.22 Type 2 diabetes mellitus with diabetic chronic kidney disease; N18.9 Chronic kidney disease, unspecified; E11.42 Type 2 diabetes mellitus with diabetic polyneuropathy; D64.9 Anemia, unspecified; E78.5 Hyperlipidemia, unspecified; G47.30 Sleep apnea, unspecified; E66.9 Obesity, unspecified; Z68.33 Body mass index [BMI] 33.0-33.9, adult; Z79.4 Long term (current) use of insulin; Z96.41 Presence of insulin pump (external) (internal); Z79.82 Long term (current) use of aspirin; Z79.84 Long term (current) use of oral hypoglycemic drugs; Z79.899 Other long term (current) drug therapy
CPT/HCPCS: 27447; 20610; 36415; 73560; 80048; 80076; 80307; 82040; 82306; 82948; 83036; 83735; 85025; 85610; 85730; 86850; 86900; 86901; 87081; 87147; 87181; 87186; 97110; 97116; 97161; 97165; 97530; 97535; A9270; C1713; C1776; J0171; J0690; J1040; J1100; J1170; J1200; J1650; J2250; J2270; J2405; J2704; J2795; J3010; J3370; J7030; J7120

== ENCOUNTER → 2023-03-28 12:16 | Outpatient (CLI) | payer MEDICARE, SELFPAY ==
--- NOTE | ~2023-03-28 | MM_ITS ---
EXAMINATION: MM screening juli BI w rai HISTORY: Screening mammogram TECHNIQUE: Craniocaudal and mediolateral oblique 3-D tomosynthesis images were obtained and synthetic 2-D images were generated. CAD analysis was submitted and interpreted. COMPARISON: 07/01/2020, 10/23/2018 bilateral screening mammogram examinations BREAST PARENCHYMAL COMPOSITION: There are scattered areas of fibroglandular density. FINDINGS: There is no evidence of suspicious mass, calcification, or architectural distortion to sugg est malignancy in either breast. There has been no suspicious interval change. IMPRESSION: 1. No mammographic evidence of malignancy. 2. Recommend routine screening mammography in one year. BI-RADS Category 1: Negative Reviewed, dictated and finalized at location C.
== END ==
PROVIDERS: PCP Internal Medicine; Visit Provider Internal Medicine
DX: Z12.31 Encounter for screening mammogram for malignant neoplasm of breast (principal)
CPT/HCPCS: 77063; 77067

== ENCOUNTER 2023-05-29 03:24 | Day surgery (SDC) | payer MEDICARE, SELFPAY ==
[2023-03-09 12:08] VITALS: BMI 33.3
--- NOTE | 2023-05-28 18:19 | PM.HPGS ---
History of Present Illness History of Present Illness Consent: Risks, benefits, and alternatives have been discussed and questions answered. Patient agrees to proceed with procedure. Chief complaint: neoplasm screening Narrative: Sandra Duke is a 67 year old female who is referred for colon cancer screening. She has history of polyps Review of Systems Review of Systems: All systems reviewed & are unremarkable except as noted in HPI and below PMFSH Past Medical History Medical History Cervical radiculopathy Chronic kidney disease Stage 3b to 4 with a baseline creatinine of 1.70 to 1.80. Diverticulosis Hyperlipidemia Hypertension Irritable bowel syndrome with diarrhea Obstructive sleep apnea No longer wearing CPAP after weight loss in 2019. Osteoarthritis Overactive bladder Polyneuropathy Type 2 diabetes mellitus Surgical History Surgical History History of cardiac catheterization (2003) Clear coronary arteries per patient report. History of cataract extraction with lens replacement History of colonoscopy with polypectomy History of vaginal hysterectomy (1984) Family History Family History Other Diabetes mellitus Family history of Alzheimer's disease Family history of Parkinson's disease Family history of cardiovascular disease Family history of glaucoma Social History Social History Social History: Surrogate medical decision maker: Colton Duke, spouse. Code status: Full code. Smoking status: Never smoker Alcohol intake: never Substance use: never Substance use type: does not use Living arrangements: with family Additional living arrangements comments: Lives with spouse in [place]. Occupation/Education: retired Additional occupation/education comments: Retired. Spiritual care concerns: No Meds Home Medications and Allergies Home Medications Medication Instructions Recorded Confirmed Type cetirizine 10 mg capsule (Zyrtec) 10 mg PO DAILY 10/08/19 05/29/23 History flash glucose sensor (FreeStyle #1 ea 10/08/19 05/29/23 History Tierney 14 Day Sensor kit) lisinopril 10 mg tablet 10 mg PO QAM 10/08/19 05/29/23 History insulin pump controller (Omnipod #1 ea 04/22/20 05/29/23 History DASH PDM Kit (Gen 4)) insulin pump cartridge (Omnipod #30 ea 06/16/20 05/29/23 Rx Dash Insulin Pod) allopurinol 100 mg tablet 100 mg PO DAILY 02/20/23 05/29/23 History atorvastatin 80 mg tablet 80 mg PO QAM 02/20/23 05/29/23 History dapagliflozin propanediol 10 mg 10 mg PO QAM 02/20/23 05/29/23 History tablet (Farxiga) insulin aspart U-100 100 unit/mL 1 sliding scale dose subcut 02/20/23 05/29/23 History (3 mL) subcutaneous pen (Novolog USEASDIRECTD FlexPen U-100 Insulin aspart) semaglutide 2 mg/dose (8 mg/3 mL) 2 mg subcut WEEKLY 02/20/23 05/29/23 History subcutaneous pen injector (Ozempic) cyanocobalamin (vitamin B-12) 1,000 mcg subcut WEEKLY 03/07/23 05/29/23 History 1,000 mcg/mL injection solution ergocalciferol (vitamin D2) 1,250 1,250 mcg PO MONTHLY 03/07/23 05/29/23 History mcg (50,000 unit) capsule oxybutynin chloride 5 mg 5 mg PO QAM 03/07/23 05/29/23 History tablet,extended release 24 hr oxycodone 5 mg tablet 5 mg PO Q4H PRN pain #40 tabs 03/21/23 05/29/23 Rx sennosides 8.6 mg-docusate sodium 2 tab-cap PO BID PRN Constipation 05/11/23 05/29/23 History 50 mg tablet (Senokot-S) Allergies Allergy/AdvReac Type Severity Reaction Status Date / Time acetaminophen AdvReac Severe sleepy Verified 05/29/23 06:21 [From [employer] DayQuil] chlorpheniramine AdvReac Severe hostile/agg Verified 05/29/23 06:21 [From [employer] DayQuil] ressive dextromethorphan AdvReac Severe hostile, Verified 05/29/23 06:21 [From [employer] DayQuil] aggressive gu
[2023-05-29 06:26] VITALS: BP 119/71; PULSE 110; RESP 17; TEMP 36.4; O2SAT 100; BMI 31.9
--- NOTE | 2023-05-29 06:34 | SUR.PREOP ---
Patient used Dexcom to read off blood sugar level. Blood sugar was 188.
[2023-05-29] MEDS: LACTATED RINGERS 1,000 ML 150 ML IV CONT (06:50)
[2023-05-29] MEDS: AMPICILLIN 2 GM/NS 100 ML 2 GM/100 ML BAG IVPB (06:51)
--- NOTE | 2023-05-29 07:03 | WPDANESEPPF ---
Anes - Initial Pre Proc Eval Procedure: Operation Date: 05/29/23 07:30 Proposed Procedures p Screening Colonoscopy - Colten Jacobsen MD Date/Time: 05/29/23 07:03 Surgeon: Colten Jacobsen MD Pre Op Diagnosis: neoplasm screening Patient Data Age: 67 Gender: F Height: 1.55 m Weight: 76.7 kg Last Vital Signs Temp 36.4 C 05/29/23 06:26 Pulse 110 H 05/29/23 06:26 Resp 17 05/29/23 06:26 BP 119/71 05/29/23 06:26 Pulse Ox 100 05/29/23 06:26 O2 Del Method Room Air 05/29/23 06:26 Allergies Allergy/AdvReac Type Severity Reaction Status Date / Time acetaminophen AdvReac Severe sleepy Verified 05/29/23 06:21 [From [facility] DayQuil] chlorpheniramine AdvReac Severe hostile/agg Verified 05/29/23 06:21 [From [employer] DayQuil] ressive dextromethorphan AdvReac Severe hostile, Verified 05/29/23 06:21 [From [facility] DayQuil] aggressive guaifenesin AdvReac Severe aggressive/ Verified 05/29/23 06:21 [From [employer] DayQuil] hostile phenylpropanolamine AdvReac Severe hostile/agg Verified 05/29/23 06:21 [From [facility] DayQuil] ressive pseudoephedrine AdvReac Severe hostile/agg Verified 05/29/23 06:21 [From [facility] DayQuil] ressive green beans Allergy Unknown Hives, Uncoded 05/29/23 06:21 trouble breathing Home Medications Medication Instructions Recorded Confirmed Type cetirizine 10 mg capsule (Zyrtec) 10 mg PO DAILY 10/08/19 05/29/23 History flash glucose sensor (FreeStyle #1 ea 10/08/19 05/29/23 History Tierney 14 Day Sensor kit) lisinopril 10 mg tablet 10 mg PO QAM 10/08/19 05/29/23 History insulin pump controller (Omnipod #1 ea 04/22/20 05/29/23 History DASH PDM Kit (Gen 4)) insulin pump cartridge (Omnipod #30 ea 06/16/20 05/29/23 Rx Dash Insulin Pod) allopurinol 100 mg tablet 100 mg PO DAILY 02/20/23 05/29/23 History atorvastatin 80 mg tablet 80 mg PO QAM 02/20/23 05/29/23 History dapagliflozin propanediol 10 mg 10 mg PO QAM 02/20/23 05/29/23 History tablet (Farxiga) insulin aspart U-100 100 unit/mL 1 sliding scale dose subcut 02/20/23 05/29/23 History (3 mL) subcutaneous pen (Novolog USEASDIRECTD FlexPen U-100 Insulin aspart) semaglutide 2 mg/dose (8 mg/3 mL) 2 mg subcut WEEKLY 02/20/23 05/29/23 History subcutaneous pen injector (Ozempic) cyanocobalamin (vitamin B-12) 1,000 mcg subcut WEEKLY 03/07/23 05/29/23 History 1,000 mcg/mL injection solution ergocalciferol (vitamin D2) 1,250 1,250 mcg PO MONTHLY 03/07/23 05/29/23 History mcg (50,000 unit) capsule oxybutynin chloride 5 mg 5 mg PO QAM 03/07/23 05/29/23 History tablet,extended release 24 hr oxycodone 5 mg tablet 5 mg PO Q4H PRN pain #40 tabs 03/21/23 05/29/23 Rx sennosides 8.6 mg-docusate sodium 2 tab-cap PO BID PRN Constipation 05/11/23 05/29/23 History 50 mg tablet (Senokot-S) Patient hx anesthesia problems: none Family hx anesthesia problems: none Results Review: All pre-operative results and documents have been reviewed as part of the pre-operative evaluation. [facility] Past Medical History Medical History Cervical radiculopathy Chronic kidney disease Stage 3b to 4 with a baseline creatinine of 1.70 to 1.80. Diverticulosis Hyperlipidemia Hypertension Irritable bowel syndrome with diarrhea Obstructive sleep apnea No longer wearing CPAP after weight loss in 2019. Osteoarthritis Overactive bladder Polyneuropathy Type 2 diabetes mellitus Surgical History Surgical History History of cardiac catheterization (2003) Clear coronary arteries per patient report. History of cataract extraction with lens replacement History of colonoscopy with polypectomy History of vaginal hysterectomy (1984) Family History Family History Other Diabetes mellitus Family history of Alzheimer's disease Family history of Parkinson's disea
[2023-05-29 07:56] VITALS: BP 107/59; PULSE 76; RESP 23; O2SAT 100
[2023-05-29 08:06] VITALS: BP 104/70; PULSE 86; RESP 22; O2SAT 100
[2023-05-29 08:16] VITALS: BP 110/70; PULSE 84; RESP 20; O2SAT 100
== END 2023-05-29 08:25 | disposition home or self-care (01) ==
PROVIDERS: PCP Internal Medicine; Visit Provider Internal Medicine Gastroenterology
PROC: 0DJD8ZZ Inspection of Lower Intestinal Tract, Via Natural or Artificial Opening Endoscopic (ICD-10-PCS; CPT 45378; principal; 2023-05-29 07:30)
DX: Z12.11 Encounter for screening for malignant neoplasm of colon (principal); K57.30 Diverticulosis of large intestine without perforation or abscess without bleeding; K64.8 Other hemorrhoids; Z86.010 Personal history of colon polyps; I12.9 Hypertensive chronic kidney disease with stage 1 through stage 4 chronic kidney disease, or unspecified chronic kidney disease; E11.22 Type 2 diabetes mellitus with diabetic chronic kidney disease; E11.42 Type 2 diabetes mellitus with diabetic polyneuropathy; N18.32 Chronic kidney disease, stage 3b; E78.5 Hyperlipidemia, unspecified; K58.0 Irritable bowel syndrome with diarrhea; N32.81 Overactive bladder; Z79.4 Long term (current) use of insulin; Z79.84 Long term (current) use of oral hypoglycemic drugs; Z79.899 Other long term (current) drug therapy; Z96.41 Presence of insulin pump (external) (internal); Z79.891 Long term (current) use of opiate analgesic
CPT/HCPCS: G0105; J0290; J2704; J7120

== ENCOUNTER 2023-12-01 13:59 | Outpatient (CLI) | payer MEDICARE, SELFPAY ==
--- NOTE | ~2023-12-01 | XR_ITS ---
EXAMINATION: XR lg joint inject/asp w image DATE: 12/01/2023 14:50 INDICATION: Left frozen shoulder TECHNIQUE: A time-out was performed to verify the patient's name, date of , and procedure to b e performed. The procedure including the risks, benefits, and alternatives was discussed with the pat ient. Risks discussed included bleeding and infection. The patient understood the risks and agreed to proceed. The skin overlying the rotator cuff interval of the left glenohumeral joint was prepped an d draped in usual sterile fashion. Anesthetic was administered with 1% lidocaine subcutaneously. A 22 G needle was advanced under fluoroscopic guidance into the joint. Injection of 1 mL of Omnipaque 240 confirmed intra-articular position of the needle. Subsequently, injectate consisting of 5 mm of a 4:1 mixture of 1% lidocaine:80 mg/mL Depo-Medrol for a total dosage of 80 mg Depo-Medrol was instil led. Washout of contrast was seen confirming intra-articular administration. The needle was removed a nd the entry site was cleaned and dressed. There were no immediate complications. Fluoroscopy exposu re time was 0.1 minutes. The total number of images was 2. FINDINGS: Real-time fluoroscopy demonstrates the needle in the left glenohumeral joint. Patient's eduardo n prior to procedure:5/10. Patient's pain following the procedure: 11/18. IMPRESSION: 1. Left glenohumeral injection of local anesthetic and steroid with decrease in the patient's present ing pain. Reviewed, dictated and finalized at location A. [facility] IMPRESSION: 1. Left glenohumeral injection of local anesthetic and steroid with decrease in the patient's presenting pain.
== END 2023-12-01 14:00 | disposition home or self-care (01) ==
PROVIDERS: PCP Internal Medicine; Referring Provider Physician Assistant Surgical; Visit Provider Orthopaedic Surgery
DX: M75.02 Adhesive capsulitis of left shoulder (principal)
CPT/HCPCS: 20610; 77002; J1040; Q9966

== ENCOUNTER 2024-07-22 12:36 | Outpatient (CLI) | payer MEDICARE, SELFPAY ==
--- NOTE | ~2024-07-22 | DEXA_ITS ---
Bone Density Report Name: JOSÉ MIGUEL BLAND Age: 68 Sex: Female Ethnicity: White Date of : 1955 Indication: postmenopausal; screening for osteoporosis; height loss; inflammatory bowel disease; hysterectomy; Referring Provider: TIFFANY, ROSALES [place] Study: Bone densitometry was performed. Exam Date: July 22, 2024 Accession number: [id number] Bone Density: Region BMD T-score Z-score Classification AP Spine(L1-L4) 1.122 0.7 2.8 Normal Femoral Neck (Left) 0.775 -0.7 1.2 Normal Total Hip (Left) 0.888 -0.4 1.1 Normal Femoral Neck (Right) 0.851 0.0 1.9 Normal Total Hip (Right) 0.895 -0.4 1.2 Normal Total Hip Mean 0.892 -0.4 1.2 Normal World Health Organization criteria for BMD impression classify patients as: Normal (T-score at or above -1.0), Osteopenia (T-score between -1.0 and -2.5), or Osteoporosis (T-score at or below -2.5). 10-year Fracture Risk: FRAX not reported because: All T-scores for Spine Total, Hip Total, Femoral Neck at or above -1.0 Clinical Information Provided by Patient: Has used the following medications: Vitamin D Has the following medical conditions: Inflammatory bowel diseases, Hysterectomy Patient maximum height was 64.0 Drinks caffeinated beverages Onset of menses at age 11 Number of children 3 Impression: The patient has normal bone mass. Discussion: BONE DENSITY IS ABOVE THE MINIMUM DESIRABLE LEVEL AT ALL SKELETAL SITES TESTED. This patient?s bone mineral density is above the minimum desirable level (T-score -1.0 or better) at all sites measured. The patient should follow a healthful lifestyle (good nutrition with adequate calcium and vitamin D, and appropriate weight-bearing exercise). Follow-Up: Consider repeating this study in 5 years or sooner if there is some new clinical indication. Reported by: KHRIS on 07/22/2024 1:12:00 PM. Reviewed, dictated and finalized at location ABrandyn CRYSTAL
== END 2024-07-22 12:37 | disposition home or self-care (01) ==
LOC: ANHIMG 12:38
PROVIDERS: PCP Internal Medicine; Visit Provider Internal Medicine
DX: M81.0 Age-related osteoporosis without current pathological fracture (principal)
CPT/HCPCS: 77080

== ENCOUNTER 2025-06-12 13:44 | Outpatient (CLI) | payer MEDICARE, SELFPAY ==
--- NOTE | ~2025-06-12 | US_ITS ---
Examination: Ultrasound of the retroperitoneum including kidneys and bladder. Clinical History: CKD . Comparison: None available. Findings: Right kidney: 8 cm. Normal echogenicity. Prominent collecting system. No shadowing calculi. Left kidney: 8 cm. Normal echogenicity. No collecting system dilatation. No shadowing calculi. Urinary bladder: No wall thickening or focal abnormality. IMPRESSION: 1. Mild hydronephrosis right kidney. Reviewed, dictated and finalized at location R.
== END 2025-06-12 13:45 | disposition home or self-care (01) ==
LOC: GOSHIMG 13:44
PROVIDERS: PCP Internal Medicine; Referring Provider Internal Medicine; Visit Provider Specialist
DX: N18.32 Chronic kidney disease, stage 3b (principal); N13.30 Unspecified hydronephrosis
CPT/HCPCS: 76770